=== PATIENT | female | born 1985 | race Hispanic/Latino ===

== ENCOUNTER 2021-04-28 11:06 | Emergency (ER) | payer OTHER ==
[~2021-04-28] VITALS: Ht 165.1 cm; Wt 79.4 kg
[2021-04-28 11:39] LABS: BASOPHILS % 0.3 % (0.0-1.0); EOSINOPHILS # (AUTO) 0.1 (0.0-0.4); EOSINOPHILS % 1.7 % (0.0-6.0); HEMATOCRIT 42.5 % (34.2-44.1); HEMOGLOBIN 13.7 g/dL (12.0-16.0); LYMPHOCYTES # (AUTO) 2.1 (1.0-3.2); LYMPHOCYTES % 26.6 % (18.0-39.1); MEAN CORPUSCULAR HGB CONC 32.2 g/dL (31-35); MEAN CORPUSCULAR VOLUME 86.7 fL (81-99); MONOCYTES # (AUTO) 0.6 (0.2-0.8); MONOCYTES % 7.8 % (4.4-11.3); NEUTROPHILS # (AUTO) 4.9 (2.1-6.9); NEUTROPHILS % 63.3 % (38.7-80.0); PLATELET COUNT 315 x10e3/uL (140-360); RED CELL DISTRIBUTION WIDTH 14.6 % (11.7-14.4)
[2021-04-28 12:07] LABS: ALBUMIN 4.3 g/dL (3.5-5.0); ANION GAP 12.8 mmol/L (8-16); CALCIUM 9.1 mg/dL (8.4-10.2); CREATININE, SERUM 0.74 mg/dL (0.57-1.11); POTASSIUM 3.8 mmol/L (3.5-5.1)
[2021-04-28 12:22] LABS: CLARITY,URINE CLOUDY (CLEAR); COLOR,URINE RED (YELLOW)
[2021-04-28] MEDS ORDERED: ONDANSETRON HCL INJ 2MG/ML 2ML 2 MG/ML VIAL IV STA (12:27)
[2021-04-28] MEDS ORDERED: SODIUM CHLORIDE 0.9% 1000ML 1,000 ML IV STA (12:27)
[2021-04-28] MEDS ORDERED: FAMOTIDINE 20 MG/2 ML VIAL IV STA (12:27)
[2021-04-28] MEDS ORDERED: DONNATAL/LIDOCAINE/MAALOX 30 ML SUSP PO ONE (12:30)
[2021-04-28 12:54] LABS: BACTERIA,URINE FEW /HPF; EPITHELIAL CELLS,URINE FEW /LPF
[2021-04-28] MEDS ORDERED: DICYCLOMINE HCL10 MG PO (14:05)
[2021-04-28] MEDS ORDERED: ONDANSETRON ODT4 MG PO (14:05)
[2021-04-28] MEDS ORDERED: ACETAMIN-CODE12.5 ML PO (14:05)
[2021-04-28 14:21] VITALS: BP 112/81
== END 2021-04-28 14:23 | disposition home or self-care (01) ==
LOC: ER 11:56
DX: R10.13 Epigastric pain (principal); C16.9 Malignant neoplasm of stomach, unspecified; R11.2 Nausea with vomiting, unspecified; R19.7 Diarrhea, unspecified
CPT/HCPCS: 36415; 80053; 81001; 81025; 83690; 84484; 85025; 93005; 99284; J2405; J7030